=== PATIENT | female | born 1995 | race Two or more races ===

== ENCOUNTER 2020-05-10 10:19 | Emergency (ER) | payer BC ==
[~2020-05-10] VITALS: Ht 172.7 cm; Wt 89.9 kg
[2020-05-10 10:22] VITALS: BP 132/66
--- NOTE | 2020-05-10 10:38 | NUR ---
PT TO ROOM 5 W/ MOTHER FOR C/O ANXIETY STARTED 6 HRS AGO. PT STATES SHE HAS HX ANXIETY BUT NOT A PANIC ATTACK. BREATHING RAPIDLY AND C/O CRAMPING/NUMBNESS TO HANDS. PT PROVIDED W/ PAPER BAG TO RE-BREATHE CO2 TO HELP W/ NUMBNESS/CRAMPING. ERINN HARDIN AT BEDSIDE.
[2020-05-10] MEDS ORDERED: hydrOXyzine 50MG TABLET ONE (10:40)
[2020-05-10] MEDS ORDERED: ONDANSETRON ODT 4 MG ONE (10:44)
[2020-05-10] MEDS ORDERED: PROMETHAZINE 25 MG/ML, 1ML ONE (10:56)
[2020-05-10] MEDS ORDERED: LORazepam 2 MG/ML, 1ML ONE (10:56)
[2020-05-10] MEDS ORDERED: ONDANSETRON ODT 4 MG PO ONE (11:00)
[2020-05-10] MEDS ORDERED: LORazepam 2 MG/ML, 1ML IM ONE (11:00)
[2020-05-10] MEDS ORDERED: PROMETHAZINE 25 MG/ML, 1ML IM ONE (11:00)
--- NOTE | 2020-05-10 11:02 | NUR ---
PT HAD BOUT OF EMESIS AFTER ADMIN OF MEDICATION. SPOKE W/ ERINN HARDIN. NEW ORDERS PLACED. PT MEDICATED PER SEP.
--- NOTE | 2020-05-10 11:26 | NUR ---
PT NOW MORE RELAXED. PLACED FOR RECHECK.
== END 2020-05-10 12:06 | disposition home or self-care (01) ==
LOC: ED 10:30
DX: F41.1 Generalized anxiety disorder (principal); R06.4 Hyperventilation
CPT/HCPCS: 96372; 99284; J2060; J2550; Q0162; Q0177

== ENCOUNTER 2020-10-10 09:44 | Emergency (ER) | payer BC ==
[~2020-10-10] VITALS: Ht 177.8 cm; Wt 89.7 kg
[2020-10-10 09:55] VITALS: BP 126/70
[2020-10-10] MEDS ORDERED: PROMETHAZINE 25 MG/ML, 1ML ONE (10:22)
[2020-10-10] MEDS ORDERED: PROMETHAZINE 25 MG/ML, 1ML IM ONE (10:30)
--- NOTE | 2020-10-10 11:04 | NUR ---
pt tolerated po fluid challenge. po meds then given per orders.
[2020-10-10] MEDS ORDERED: LORazepam 2 MG/ML, 1ML ONE (11:46)
[2020-10-10] MEDS ORDERED: LORazepam 2 MG/ML, 1ML IVPush ONE (12:00)
[2020-10-10 12:11] LABS: BASOPHILS % (AUTO) 0 % (0-1); EOSINOPHILS % (AUTO) 0 % (1-7); LYMPHOCYTES % (AUTO) 7 % (22-44); MEAN CORPUSCULAR HEMOGLOBIN 29.9 pg (27.0-34.8); MEAN CORPUSCULAR HGB CONC 35.4 g/dL (32.4-35.8); MEAN PLATELET VOLUME 7.9 fL (7.4-10.4); MONOCYTES % (AUTO) 3 % (2-9); NEUTROPHILS % (AUTO) 90 % (42-75); PLATELET COUNT 267 x10^3/uL (130-400); RED BLOOD COUNT 4.49 x10^6/uL (3.82-5.3); RED CELL DISTRIBUTION WIDTH 13.8 % (9.6-15.2)
[2020-10-10 12:12] LABS: MD NO
[2020-10-10 12:22] LABS: ALANINE AMINOTRANSFERASE 17 U/L (12-78); ALBUMIN 3.9 g/dL (3.4-5.0); ANION GAP 7 mmol/L (5-15); CALCIUM 8.6 mg/dL (8.5-10.1); CHLORIDE 104 mmol/L (98-107); CREATININE 0.83 mg/dL (0.55-1.02)
[2020-10-10 12:25] LABS: ALKALINE PHOSPHATASE 48 U/L (45-117); BILIRUBIN,TOTAL 0.6 mg/dL (0.2-1.0); TOTAL PROTEIN 7.9 g/dL (6.4-8.2)
[2020-10-10] MEDS ORDERED: SODIUM CHLORIDE 0.9% 1,000ML IVBOLUS ONE (12:30)
== END 2020-10-10 13:40 | disposition home or self-care (01) ==
LOC: ED 13:16
DX: F41.0 Panic disorder [episodic paroxysmal anxiety] (principal); R11.2 Nausea with vomiting, unspecified; R94.31 Abnormal electrocardiogram [ECG] [EKG]
CPT/HCPCS: 36415; 80053; 84703; 85025; 93005; 96361; 96372; 96374; 99284; J2060; J2550; J7030; Q0177

== ENCOUNTER 2021-01-06 11:20 | Emergency (ER) | payer BC ==
[~2021-01-06] VITALS: Ht 172.7 cm; Wt 90.8 kg
--- NOTE | 2021-01-06 11:24 | NUR ---
Not in lobby x1
--- NOTE | 2021-01-06 11:45 | NUR ---
PT BROUGHT BACK FROM LOBBY WITH CHIEF COMPLAINT OF PANIC ATTACK.
--- NOTE | 2021-01-06 11:48 | NUR ---
MADY MOORE AT BEDSIDE FOR EVAL
[2021-01-06] MEDS ORDERED: LORazepam 2 MG/ML, 1ML ONE (11:51)
[2021-01-06] MEDS ORDERED: LORazepam 2 MG/ML, 1ML IM ONE (12:00)
--- NOTE | 2021-01-06 12:02 | NUR ---
PT MEDICATED PER MAR
--- NOTE | 2021-01-06 13:07 | NUR ---
BEDSIDE FOR RECHECK
[2021-01-06] MEDS ORDERED: KETOROLAC 30 MG/1 ML ONE (13:11)
[2021-01-06 13:30] LABS: MEAN CORPUSCULAR HEMOGLOBIN 28.9 pg (27.0-34.8); MEAN CORPUSCULAR HGB CONC 33.8 g/dL (32.4-35.8); MEAN PLATELET VOLUME 8.4 fL (7.4-10.4); PLATELET COUNT 208 x10^3/uL (130-400); RED CELL DISTRIBUTION WIDTH 13.5 % (9.6-15.2)
[2021-01-06 13:41] LABS: CHLORIDE 107 mmol/L (98-107)
[2021-01-06 13:49] LABS: ANION GAP 10 mmol/L (5-15); CALCIUM 8.4 mg/dL (8.5-10.1); CREATININE 0.65 mg/dL (0.55-1.02)
[2021-01-06 13:53] LABS: <PLATELET ESTIMATE> ADEQUATE; <PLT MORPHOLOGY> NORMAL PLT MORPH; <RBC MORPHOLOGY> NORMAL; BAND#(MANUAL) 0.56 x10^3/uL; BANDS%(MANUAL) 3 % (0-7); LYMPH#(MANUAL) 0.56 x10^3/uL (1-3.4); LYMPHS% (MANUAL) 3 % (22-44); MONOS#(MANUAL) 0.56 x10^3/uL (0.3-2.7); MONOS% (MANUAL) 3 % (2-9); SEG#(MANUAL) 16.84 x10^3/uL (1.8-6.8); SEGS% (MANUAL) 91 % (42-75)
[2021-01-06] MEDS ORDERED: KETOROLAC 30 MG/1 ML IVPush ONE (14:00)
--- NOTE | 2021-01-06 14:01 | NUR ---
PT MEDCIATED PER MAR
[2021-01-06 14:41] VITALS: BP 126/82
--- NOTE | 2021-01-06 14:43 | NUR ---
PT RESTING IN [facility]. MOTHER BEDSIDE. NAD
[2021-01-06] MEDS ORDERED: ONDANSETRON ODT 8 MG ONE (15:14)
[2021-01-06] MEDS ORDERED: ONDANSETRON ODT 8 MG PO ONE (15:30)
--- NOTE | 2021-01-06 15:44 | NUR ---
UPON DC PT AND HER MOTHER WERE UPSET SHE WAS NOT GOING TO BE DC WITH "ANXIETY MEDICATION". 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 PT ALSO KEPT DRINKING WATER EVEN THOUGH SHE WOULD VOMIT IT BACK UP. PT WAS EDUCATED NOT TO DRINK SO MUCH WATER AT A TIME.
== END 2021-01-06 15:47 | disposition home or self-care (01) ==
LOC: ED 11:23
DX: F41.0 Panic disorder [episodic paroxysmal anxiety] (principal); N83.299 Other ovarian cyst, unspecified side; R10.2 Pelvic and perineal pain; R94.31 Abnormal electrocardiogram [ECG] [EKG]
CPT/HCPCS: 36415; 76830; 80048; 84703; 85025; 93005; 96372; 96374; 99285; J1885; J2060; Q0162

== ENCOUNTER 2021-03-05 03:21 | Emergency (ER) | payer BC ==
--- NOTE | 2021-03-05 03:35 | NUR ---
PATIENT REPORTS "I CAN'T BREATH", NOT ANSWERING QUESTIONS AT THIS TIME, REPEATING "I CAN'T BREATH"
--- NOTE | 2021-03-05 03:58 | NUR ---
PATIENT MEDICATED PER SEP. PATIENT ROLLING AROUND ON [facility]. PATIENT REMOVED BP CUFF AND PULSE OX SENSOR. PATIENT ALSO REQUESTING SOMETHING FOR GAS.
[2021-03-05] MEDS ORDERED: LORazepam 1MG TABLET PO ONE (04:00)
[2021-03-05] MEDS ORDERED: DROPERIDOL 2.5MG/ML, 2ML IM ONE (04:00)
[2021-03-05] MEDS ORDERED: ONDANSETRON ODT 4 MG PO ONE (04:00)
--- NOTE | 2021-03-05 04:21 | NUR ---
PATIENT SLEEPING ON [facility]. NAD AT THIS TIME.
[2021-03-05 05:28] VITALS: BP 140/76
== END 2021-03-05 05:31 | disposition home or self-care (01) ==
LOC: ED 05:20
DX: F41.1 Generalized anxiety disorder (principal); R11.2 Nausea with vomiting, unspecified; R06.02 Shortness of breath
CPT/HCPCS: 96372; 99283; J1790

== ENCOUNTER 2021-04-12 19:44 | Emergency (ER) | payer BC ==
[~2021-04-12] VITALS: Ht 177.8 cm; Wt 90.0 kg
[2021-04-12] MEDS ORDERED: LORazepam 1MG TABLET PO ONE (20:30)
[2021-04-12] MEDS ORDERED: ONDANSETRON ODT 4 MG PO ONE (21:00)
[2021-04-12] MEDS ORDERED: ONDANSETRON ODT 4 MG ONE (23:04)
[2021-04-12] MEDS ORDERED: LORazepam 1MG TABLET ONE (23:05)
--- NOTE | 2021-04-12 23:22 | NUR ---
PT VERY ANXIOUS UPON ENTERING ROOM. STATES ANXIETY IS DUE TO HER GAS AND THEN ALSO CAUSES HER TO HAVE HTN. PT CRYING HOPELESSLY AND CLAIMS TO BE VOMITING HOWEVER NONE NOTED. PT WAS GIVEN ODT ZOFRAN AND PO ATIVAN AND STATES SHE WAS TOLD TO PLACE ZOFRAN UNDER HER TONGUE BUT INSTEAD SHE SWALLOWED MEDICATION AND THEN STATES SHE IMMEDIATELY THREW IT UP BUT IS NOT SURE IF SHE THREW UP MEDICATIONS. PT COMFORTED BY FAMILY.
--- NOTE | 2021-04-12 23:24 | NUR ---
PT GIVEN WARM BLANKET AND ICE CHIPS
[2021-04-13] MEDS ORDERED: DROPERIDOL 2.5MG/ML, 2ML IM ONE (01:00)
--- NOTE | 2021-04-13 01:15 | NUR ---
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 PT BREATHING FAST UPON ENTERING ROOM, NO VOMITING NOTED AT THIS TIME. MOM AT BEDSIDE
[2021-04-13 02:04] VITALS: BP 115/51
--- NOTE | 2021-04-13 02:09 | NUR ---
pt sleeping, awakens easily, ready to go home. mom to drive pt home.
--- NOTE | 2021-04-13 02:19 | NUR ---
Patient given discharge instructions and they have confirmed that they understand the instructions. Patient ambulatory with steady gait but requesting wheelchair to car. NAD, all questions answered appropriately, denies additional needs at this time. No personal belongings left in room after discharge. Mom to drive pt home.
== END 2021-04-13 02:19 | disposition home or self-care (01) ==
LOC: ED 19:54
DX: F41.1 Generalized anxiety disorder (principal); R11.2 Nausea with vomiting, unspecified
CPT/HCPCS: 96372; 99283; J1790; Q0162